=== PATIENT | male | born 1980 | race Caucasian/White ===

== ENCOUNTER 2022-04-27 13:14 | Emergency (ER) | payer OTHER, SELFPAY ==
[2022-04-27 13:15] VITALS: BP 126/78; PULSE 76; RESP 18; TEMP 36.6; O2SAT 100; BMI 26.4
[2022-04-27 13:16] VITALS: BP 126/78; PULSE 76; RESP 18; TEMP 36.6; O2SAT 100
[2022-04-27] MEDS: Lidocaine 1% (20 ml mdv) 20 ML Vial INFILT (13:46)
--- NOTE | 2022-04-27 14:19 | EX.ED.DYSGE1 ---
HPI History of Present Illness Chief Complaint: Cellulitis Detail of Chief Complaint: Cellulitis/abscess volar surface right wrist Informant: patient Onset/Context/Timing Onset: Days (Was seen at urgent care and had small puncture wounds to drain abscess.) Context: Sudden Onset Timing: Continuous Quality: Read HPI narrative Location: Volar surface right wrist Current Severity: Moderate Maximum Severity: Moderate Worsened by: Abscess Relieved by: Nothing Associated Symptoms Associated Symptoms: No constitutional symptoms. On no immunosuppressive meds Narrative Narrative: Patient is a 41-year-old [id number] male who presents with worsening cellulitis of his wrist. He states this was drained at an urgent care. There are multiple small slits noted. They have closed. He was prescribed Bactrim and cephalexin. He is on no immunosuppressive meds. He complains of pain. Denies paresthesia, anesthesia or motor weakness. There is no history of medic fever or heart murmur. Prior similar symptoms: Yes Recent Illness/Hospitalization: Yes PFSH PFSH Medical History no medical history no medical history (Cellulitis/abscess of right wrist) Home Medications Ibuprofen [Motrin] 800 mg PO TID PRN PRN Pain #20 tabs 07/30/15 [Rx Last Taken Unknown] cephalexin 500 mg capsule 500 mg PO Q6 ##28 07/30/15 [Rx Last Taken Unknown] hydrocodone-acetaminophen 5-325mg 5mg-325mg 1 tab PO Q6H PRN PRN Pain 3 days #10 TABLETS 04/27/22 [Rx Last Taken Unknown] Allergy/AdvReac Type Severity Reaction Status Date / Time No Known Allergies Allergy Verified 04/27/22 13:15 Surgical History no surgical history no surgical history Social History (Updated 04/27/22 @ 14:[address] Dany Ornelas MD) household members: spouse and children Smoking Status: Never smoker substance use type: does not use ROS ROS ED Constitutional Constitutional ED: Denies chills, fever(s), subjective, sweats or weight loss Eyes Eyes: Denies blurry vision or change in vision Cardiovascular Cardiovascular: Reports other Details: No history of rheumatic fever, heart murmur, SBE ; Denies chest pain or palpitations Respiratory/Chest Respiratory/Chest: Denies cough, dyspnea or dyspnea on exertion Gastrointestinal Gastrointestinal: Denies nausea or vomiting Musculoskeletal Musculoskeletal: Denies arthralgias, back pain, myalgias or neck pain Integumentary Reports abscess and rash; Denies Abrasions Neurologic Neurologic: Denies headache(s), paresthesias or weakness Hematologic/Lymphatic Hematologic/Lymphatic: Denies easy bleeding, easy bruising or lymphadenopathy Allergic/Immunologic Allergic/Immunologic ED: Denies mouth swelling EXAM Physical Exam Const Vital Signs: 04/27/22 13:15 04/27/22 13:36 04/27/22 13:16 Temperature 97.9 F 97.9 F Temperature Source Temporal Temporal Pulse Rate 76 76 Respiratory Rate 18 18 Respiratory Effort Normal Non-Labored Blood Pressure 126/78 H 126/78 H Blood Pressure Mean 94 94 Pulse Ox 100 100 Oxygen Delivery Method Room Air Room Air Positive well nourished and well developed General Appearance ED: well developed and NAD; Negative for pallor HEENT Reports moist mucous membranes HEENT Narrative: Ears normal. Nares patent. Mucosa moist. Negative for trauma or tenderness Eyes PERRL and EOMs intact bilaterally General Eye ED: Negative for pale conjunctiva Neck no lymphadenopathy, supple and no JVD Resp normal respiratory effort and clear to auscultation bilaterally Cardio regular rate, regular rhythm, S1 normal heart sound, S2 normal heart sound and no murmurs Extremity Negative for normal to inspection Extremity Narrative: There is evidence of contact dermatitis with cellulitis and possible abscess. General Extremety ED: Yes edema and tenderness General Extremity: edema Neuro oriented x3, CN's II-XII intact bilaterally and no sensory deficits noted Sensorium / Orientation: alert Motor Exam: strength 5/5 throughout Psych mental status grossly normal Skin skin turgor normal Skin Narrative: Described under the extremity portion of the physical exam General Skin Exam: elasticity normal; Negative for jaundice or pallor MDM MDM MDM Narrative Medical decision making narrative: Uncertain whether this represents a contact dermatitis with edema and inflammation with cellulitis as well as abscess. Needle aspirate was positive for 2 cc of brown thick purulent material. Patient was consented verbally for I&D of abscess. Procedures Other Procedures Procedure(s): 1. Needle aspirate to determine if there is an abscess and if there is fluid. As previously documented 2 cc of brown thick purulent material was aspirated without difficulty. There are other fluctuant areas. Plan is I&D 2. Patient was consented for incision and drainage. Patient was explained risk benefits. The area was prepped draped sterile manner. The area was Nestabs with percent lidocaine by local infiltration and field block. A 2.5 cm incision was made using a 10 blade. There was free flow of additional purulent material noted. Blunt dissection was undertaken with more purulent material. One area dark blood like material consistent with infected hematoma. Depth of the cavity 1 cm diameter of the cavity 4 cm. The cavity was irrigated. 1/2 inch Nu Gauze was placed as a wick to facilitate further drainage. Discharge Plan Triage Chief Complaint: Cellulitis ED Provider: Dany Ornelas Dx/Rx/DC Orders Clinical Impression: Abscess or cellulitis of wrist, Contact dermatitis Instructions: ED Abscess Incision And Drainage, ED Cellulitis Prescriptions: New hydrocodone-acetaminophen [hydrocodone-acetaminophen] 5-325 mg tablet 1 tab PO Q6H PRN PRN (Reason: Pain) 3 Days Qty: 10 0RF No Action cephalexin 500 MG capsule 500 mg PO Q6 Qty: 28 0RF Ibuprofen [Motrin] 800 MG tablet 800 mg PO TID PRN PRN (Reason: Pain) Qty: 20 0RF Primary Care Provider: Care Physician,No Primary Referrals: Myrna Mendez MD [Med Staff - [facility]] - 2 Days for wound check Care Physician,No Primary [Primary Care Provider] - Activity Restrictions/Additional Instructions: Since you do not have a physician you are referred to Dr. Myrna Mendez. You will need a wound check in 2 days. The wick should be removed in 2 to 3 days. Continue taking the cephalexin and Bactrim you were prescribed at the urgent care provider until gone Disposition Disposition: Home, Self Care
== END 2022-04-27 14:52 | disposition home or self-care (01) ==
PROVIDERS: Emergency Provider Emergency Medicine; Visit Provider Emergency Medicine
DX: L02.413 Cutaneous abscess of right upper limb (principal); L25.9 Unspecified contact dermatitis, unspecified cause; L03.113 Cellulitis of right upper limb
CPT/HCPCS: 10061; 10060; 99283